=== PATIENT | female | born 1980 | race Two or more races ===

== ENCOUNTER 2024-12-09 04:39 | Emergency (ER) | payer OTHER ==
[~2024-12-09] VITALS: Ht 165.1 cm; Wt 61.2 kg
[2024-12-09] MEDS ORDERED: FAMOTIDINE/PF 20 MG/2 ML VIAL IV PUSH STA (04:56)
[2024-12-09] MEDS ORDERED: PROMETHAZINE HCL 50 MG/ML AMPUL IM STA (04:56)
[2024-12-09] MEDS ORDERED: RINGERS SOLUTION,LACTATED 1,000 ML IV ONE (05:00)
[2024-12-09] MEDS ORDERED: MEPERIDINE HCL/PF 50 MG/ML VIAL IM STA (05:50)
[2024-12-09 09:27] LABS: HEMATOCRIT 25.9 % (36.0-45.00); MEAN CELL VOLUME 78.2 fL (80.00-100.00); MEAN CORPUSCULAR HGB CONC 31.3 g/dl (32.0-36.0); PLATELET COUNT 425 K/uL (150-450); RED BLOOD COUNT 3.31 M/uL (4.00-6.00)
[2024-12-09 09:54] LABS: ALBUMIN 4.4 gm/dL (3.4-5.0); BILIRUBIN TOTAL 0.47 mg/dL (0.3-1.2); BILIRUBIN,CONJUGATED 0.18 mg/dL (0.0-0.2); BILIRUBIN,UNCONJUGATED 0.29 mg/dL (0.0-0.6); CALCIUM 9.4 mg/dL (8.5-10.1); CREATININE SERUM 0.76 mg/dL (0.55-1.02); GFR 83.46; GLOBULINA 3.8 G/DL (2.4-3.5); POTASSIUM 3.27 mEq/L (3.5-5.1); TOTAL PROTEIN 8.2 gm/dL (6.4-8.2)
[2024-12-09 10:46] LABS: HEMOGLOBIN 8.1 g/dL (12.0-15.00); MEAN CORPUSCULAR HEMOGLOBIN 24.4 pg (27.00-32.0); RED CELL DISTRIBUTION WIDTH 29.2 % (11.5-14.5)
== END 2024-12-09 13:50 | disposition home or self-care (01) ==
LOC: ER 04:39
PROVIDERS: General Practice
DX: R10.13 Epigastric pain (principal); R11.10 Vomiting, unspecified